=== PATIENT | female | born 1980 | race Two or more races ===

== ENCOUNTER 2016-12-27 16:28 | Outpatient (CLI) | payer MEDICAID | END 2016-12-27 16:29 | disposition home or self-care (01) | LOC: LAB.R 16:28 | PROVIDERS: ATTEND Obstetrics & Gynecology | DX: Z11.3 Encounter for screening for infections with a predominantly sexual mode of transmission (principal) | CPT/HCPCS: 87491; 87591 ==

== ENCOUNTER 2017-01-22 17:28 | Outpatient (CLI) | payer MEDICAID ==
[2017-01-22 17:47] LABS: BASOPHILS % (AUTO) 0.7 %; EOSINOPHILS # (AUTO) 0.1 10^3/uL (0.0-0.7); EOSINOPHILS % (AUTO) 0.9 %; HGB - HEMOGLOBIN 13.6 g/dL (12.0-16.0); LYMPHOCYTES # (AUTO) 2.9 10^3/uL (1.5-3.5); LYMPHOCYTES % (AUTO) 40.9 %; MEAN CORPUSCULAR HEMOGLOBIN 31.3 pg (27.0-31.0); MEAN CORPUSCULAR HGB CONC 34.1 g/dL (32.0-36.0); MEAN PLATELET VOLUME 7.8 fL (7.9-10.8); MONOCYTES # (AUTO) 0.4 10^3/uL (0.0-1.0); MONOCYTES % (AUTO) 5.3 %; NEUTROPHILS # (AUTO) 3.6 10^3/uL (1.5-6.6); NEUTROPHILS % (AUTO) 52.2 %; NUCLEATED RED BLOOD CELLS AUTO 0.1 /100WBC; RED BLOOD COUNT 4.35 10^6/uL (4.20-5.40)
[2017-01-22 17:54] LABS: BILIRUBIN,URINE NEGATIVE (NEGATIVE); PH,URINE 6.5 PH (5.0-7.5)
== END 2017-01-22 17:29 | disposition home or self-care (01) ==
LOC: LAB 17:28
PROVIDERS: ATTEND Obstetrics & Gynecology
DX: Z01.812 Encounter for preprocedural laboratory examination (principal); O02.1 Missed abortion
CPT/HCPCS: 81003; 85025; 86850; 86900; 86901

== ENCOUNTER 2017-01-23 09:56 | Day surgery (SDC) | payer MEDICAID ==
[2017-01-23] MEDS ORDERED: LACTATED RINGERS 1,000 ML IV ONE (10:27)
[2017-01-23] MEDS ORDERED: PROPOFOL 200 MG/20 ML VIAL IVP ONE (11:00)
[2017-01-23] MEDS ORDERED: MIDAZOLAM 2 MG/2 ML VIAL IVP ONE (11:00)
[2017-01-23] MEDS ORDERED: DEXAMETHASONE 4 MG/ML VIAL IVP ONE (11:00)
[2017-01-23] MEDS ORDERED: KETOROLAC 30 MG/ML VIAL IVP ONE (11:00)
[2017-01-23] MEDS ORDERED: fentaNYL 100 MCG/2 ML VIAL IVP ONE (11:00)
[2017-01-23] MEDS ORDERED: ONDANSETRON 4 MG/2 ML VIAL IVP ONE (11:00)
[2017-01-23] MEDS ORDERED: LIDOCAINE-MPF 2% 5 ML VIAL IM ONE (11:00)
--- NOTE | 2017-01-23 11:14 | PREOP HISTORY & PHYSICAL ---
DATE OF ADMISSION/SURGERY: 01/23/2017 IDENTIFICATION: Patient is a 36-year-old G4, P3 female whose last menstrual period was 26 October 2016 . This makes her 11 weeks 6 days. CHIEF COMPLAINT: Miscarriage. HISTORY OF PRESENT ILLNESS: Patient had an early ultrasound done at roughly 6 weeks, at which time li ve cardiac activity was noted. She presented yesterday on the , at which time a transvagina l ultrasound showed a crown-rump length which was compatible with about a 7-week gestation without an y cardiac activity. Care was taken to scan multiple times of the uterus and color flow Doppler was used. A confirmation with Dr. Tapia was also employed, and once again no cardiac activity w as seen. She presents today for a repeat ultrasound and, once again, no cardiac activity is see n. I have discussed with her the options at this time of observation versus Cytotec versus D and C. A t this particular time, she would like to pursue a D and C on the first part of next week. PAST MEDICAL HISTORY: Patient denies any hypertensive, diabetic, cardiac, or pulmonary disea se. SURGICAL HISTORY: She denies any C-sections, appendectomies, tonsillectomies. ALLERGIES: NONE KNOWN. CURRENT MEDICATIONS: vitamins. HABITS: Patient denies use of alcohol, tobacco, or street or addictive drugs. SOCIAL HISTORY: Patient lives with her spouse and children. 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 FAMILY HISTORY: Positive for diabetes, both in the mother as well as a paternal grandmother. PHYSICAL EXAMINATION GENERAL: Patient is a well-developed, well-nourished white female who is no acute distress at this t jyoti. She is somewhat distraught because of the loss of this fetus. HEENT: Pupils are equal, round. Extraocular muscles intact. Thyroid is not palpably enlarged. HEART: Regular rate and rhythm without murmurs. RESPIRATORY: Lung sauceda are clear without rales or wheezes. ABDOMEN: Soft, nontender. STUDIES: Transvaginal ultrasound today shows the evidence of a crown-rump length compatible with a 7 -week 6-day gestation. There is once again no cardiac activity seen at this time. IMPRESSION 1. A 36-year-old G4, P3 female, 11.6 weeks' gestation. 2. Spontaneous miscarriage without passage at this time. PLAN: We will proceed on with a sharp and suction D and C. Risks and benefits have been explained to the patient, including those but not limited to bleeding, infection, injury to pelvic organs which in clude the uterus, tubes, ovaries, bowel, bladder, and ureters. She is aware of potential for DVT, as well as postop adhesions which could cause pain, bowel obstruction, infertility. We will try and sche dule this for Sunday. JOB #: [id number] EXT JOB #:[id number]
[2017-01-23] MEDS ORDERED: LIDOCAINE 1% 50 ML MDV SUBQ ONE (11:55)
[2017-01-23] MEDS ORDERED: SILVER NITRATE APPLICATOR TOP ONE (11:55)
[2017-01-23] MEDS ORDERED: HYDROcod/ACETAM 5/325 MG TABLET ONE (13:52)
--- NOTE | 2017-01-23 16:31 | MRI Preliminary Report ---
Exam: MRI LUMBAR SPINE W/O IMPRESSION: 1. Mild lower lumbar degenerative disk and facet arthropathy without significant canal or foraminal s tenosis. Comment: The following findings are so common in adults without low back pain that while we report th eir presence, they must be interpreted with caution and in the context of the clinical situation. (Re remy Garcia et al, Spine 2001) Prevalence of findings in patients without low back pain: Disk degeneration (any evidence): 92% Disk desiccation/T2 signal loss: 83% Disk height loss: 56% Disk bulge: 64% Disk protrusion: 32% Annular tear/high intensity zone: 38% RADIA SITE ID: [id number]
--- NOTE | 2017-01-23 16:34 | MRI Report ---
EXAM: MRI LUMBAR SPINE WITHOUT CONTRAST EXAM DATE: 01/23/2017 04:05 PM. CLINICAL HISTORY: Loss of motor to legs bilaterally. COMPARISON: None. TECHNIQUE: Multiplanar, multisequence T1-weighted and fluid-sensitive sequences of the lumbar spine f rom T12 to S1 without contrast. Other: None. FINDINGS: Spinal Cord: The conus terminates at L1. The conus medullaris and cauda equina are unremarkable. Alignment: No scoliosis or spondylolisthesis. Bone Marrow: Five [id number]-vgx-[id number] lumbar vertebral bodies are assumed. No gross fractures or bone les ions. No bone marrow edema. Disk Levels/Facets: T12-L1: Unremarkable. L1-L2: Unremarkable. L2-L3: Unremarkable. L3-L4: Slight degree of disk dehydration and minimal disk bulge. No significant stenosis. L4-L5: Slight degree of disk dehydration. Mild bilateral degenerative facet arthropathy. Small broad- based central disk protrusion. Mild effacement of the thecal sac. No significant stenosis. L5-S1: Mild degenerative facet arthropathy. No stenosis. Musculature: Normal. No edema or fatty atrophy. Other: The endometrial cavity is distended with heterogenous signal intensity material partially visu alized. IMPRESSION: 1. Mild lower lumbar degenerative disk and facet arthropathy without significant canal or foraminal s tenosis. Comment: The following findings are so common in adults without low back pain that while we report th eir presence, they must be interpreted with caution and in the context of the clinical situation. (Re remy Garcia et al, Spine 2001) Prevalence of findings in patients without low back pain: Disk degeneration (any evidence): 92% Disk desiccation/T2 signal loss: 83% Disk height loss: 56% Disk bulge: 64% Disk protrusion: 32% Annular tear/high intensity zone: 38% RADIA Referring Provider Line: [phone] SITE ID: [id number]
[2017-01-23] MEDS ORDERED: ONDANSETRON 4 MG/2 ML VIAL IVP PRN (18:07)
[2017-01-23] MEDS ORDERED: HYDROcod/ACETAM 5/325 MG TABLET PO PRN (18:07)
[2017-01-23] MEDS ORDERED: KETOROLAC 15 MG/ML VIAL IVP PRN (18:08)
[2017-01-23 18:09] VITALS: BP 109/60
[2017-01-23] MEDS ORDERED: LACTATED RINGERS 1,000 ML IV SCH (19:00)
[2017-01-23] MEDS ORDERED: SODIUM CHLORIDE FLUSH 0.9% 10 ML SYRINGE IVP ONE (20:07)
--- NOTE | 2017-01-24 15:12 | OPERATIVE REPORT ---
DATE OF SURGERY: 01/23/2017 00:00:00 PREOPERATIVE DIAGNOSES 1. Inevitable at 11 weeks 6 days. 2. Absent heart tones confirmed on 2 separate ultrasounds. POSTOPERATIVE DIAGNOSES 1. Inevitable at 11 weeks 6 days. 2. Absent heart tones confirmed on 2 separate ultrasounds. 3. Conversion reaction after the procedure in recovery room PROCEDURE: Dilatation and curettage with suction. SURGEON: Elroy Mathis MD, FACOG ANESTHESIOLOGY PROVIDER: Mari Jain, Certified Nurse Stream Control Officer ANESTHESIA TYPE: MAC/sedation. BLOOD LOSS: 100. COMPLICATIONS: None. DRAINS: None. Patient straight-catheterized prior to procedure. FINDINGS: One day prior to the procedure, an office transvaginal ultrasound found the pole consistent with 7-1/2 weeks and absent heart tones observed by 2 people and over 4 minutes. Patient watched the Ultrasound video screen and acknowledged the absence of heart tones. There was no Subchorionic hematoma. There is no obvious ovarian pathology. Examination under anesthesia finds a 9-week uterus that is soft and boggy. The cervix is patulous. Right and left ovary are normal size and mobile. TECHNIQUE: Prior to the surgery, informed consent process was accomplished. She has had 3 such consent processes, the last of which in the office yesterday included information on spontaneous loss and D and C. All informed consent paperwork was signed. Patient was brought to the operating room and placed in the supine position on the OR table. She was uneventfully induced. She was prepped and draped in the customary sterile fashion. Time-out procedure was done per protocol. We ensured that the patient was appropriately sedated prior to beginning the procedure. Legs were moved to the high dorsal lithotomy position. Clamshell speculum was inserted and the cervix visualized. Bladder was straight cathed of a small amount of clear urine. Next 10 mL of lidocaine 1% was placed in the cervix in small aliquots to create a halo of anesthesia. We waited 5 minutes for the anesthetic effect to set up. The cervix was then uneventfully dilated to Hegar size 8. The # 9 suction curet was brought to the field and calibrated correct negative pressure. It was introduced into the uterine cavity and manipulated in a systematic manner to harvest the majority of the conceptual products. Sharp curet was introduced, and there were some residual products noted in the right upper cornual area, which were curetted and removed. One final suction curet pass was made. At this point, the procedure was terminated. All instruments were removed. There was continued oozing from the 2 single- toothed tenaculum sites. First we used silver nitrate that was not effective. Next the bleeding was stanched with 2 ojhjhe-ay-vizao stitches of 3-0 chromic. We observed the cervix for 4-5 minutes to ensure there was no bleeding. All instruments were removed. DISPOSITION: Patient was uneventfully aroused and taken to the recovery room in Stable condition. Intraoperative findings were reviewed with her and her . During my discussion with the patient she kept her eyes closed and refused to look at me. I offered comfort and acknowledged her grief. When nursing attempted to ambulate the patient to the commode she was unable to voluntarily move her legs. She reported conservation of normal sensation in the lower extremity but paralysis of the legs. Mari POWER performed an initial evaluation of the patient and obtained a MRI of the spine. The MRI was negative for infarct, Plaques (MS), disc disease or other pathology. I evaluated the patient in the recovery room and found her to be alert and communicative but complaining of profound lower extremity weakness. We discussed reactions to grief. The patient could ambulate to the restroom with assistance but was not stable yet. She was then moved to the [facility] floor for extended recovery. She had urinary retention initially but was periodically straight cathed. Urinary retention cleared and she began to resume normal activities and self-care. She then was discharged home. Patient recovered and was given complete discharge instructions and warning/callback instructions. DISCHARGE MEDICATIONS 1. Motrin 600 q.i.d. for pain. 2. Handley 5/325 q.4 hours p.r.n. breakthrough pain. FOLLOWUP: Patient will be seen in the clinic in 2-3 weeks. JOB #: [id number] EXT JOB #:[id number] MTDVíctor
== END 2017-01-23 20:45 | disposition home or self-care (01) ==
LOC: SDS 09:56 → OBS 13:00 → SDS 20:45
PROVIDERS: ATTEND Obstetrics & Gynecology
PROC: 10D17ZZ Extraction of Products of Conception, Retained, Via Natural or Artificial Opening (ICD-10-PCS; principal; 2017-01-23 11:00)
DX: O03.9 Complete or unspecified spontaneous abortion without complication (principal); R27.8 Other lack of coordination; M51.36 Other intervertebral disc degeneration, lumbar region
CPT/HCPCS: 59812; 72148; A9270; J7120

== ENCOUNTER 2017-11-16 12:46 | Outpatient (CLI) | payer MEDICAID ==
[2017-11-16 15:15] LABS: T4 (THYROXINE) 7.92 ug/dL (6.09-12.23)
[2017-11-16 15:19] LABS: THYROID STIMULATING HORMONE 0.78 uIU/mL (0.34-5.60)
[2017-11-16 15:21] LABS: FREE T4 (FREE THYROXINE) 0.69 ng/dL (0.58-1.64)
== END 2017-11-16 12:47 | disposition home or self-care (01) ==
LOC: LAB 12:46
PROVIDERS: ATTEND Obstetrics & Gynecology
DX: N91.4 Secondary oligomenorrhea (principal)
CPT/HCPCS: 36415; 84144; 84436; 84439; 84443

== ENCOUNTER 2017-12-07 21:31 | Outpatient (CLI) | payer MEDICAID ==
--- NOTE | 2017-12-07 22:29 | Ultrasound Report ---
Reason: FEMAL INFERTILITY ASSOC WITH ANOVULATION Procedure Date: 12/07/2017 Accession Number: [id number] / [id number] Procedure: US - Pelvic w/Transvaginal CPT Code: FULL RESULT: EXAM: PELVIC ULTRASOUND EXAM DATE: 12/07/2017 10:03 PM. CLINICAL HISTORY: FEMALE INFERTILITY ASSOC WITH ANOVULATION. COMPARISON: None available. TECHNIQUE: Realtime transabdominal pelvic scan performed to identify the uterus and adnexa and as an overview of other pelvic structures, followed by transvaginal scan to provide greater detail of the uterus and adnexa, with static image documentation. FINDINGS: Uterus: 10.1 x 8.0 x 5.1 cm, volume 214 cc. Anteverted position. Normal overall size and echotexture. Masses: None. Endometrium: 8 mm. Normal. Cervix: Unremarkable. Right Ovary: 3.2 x 1.8 x 1.5 cm, volume 4.5 cc. Normal echotexture and blood flow. Left Ovary: 3.0 x 1.8 x 1.6 cm, volume 4.5 cc. Normal echotexture and blood flow. Free Fluid: None. Other: None. IMPRESSION: Normal pelvic ultrasound. RADIA
[2017-12-08 00:04] LABS: FOLLICLE STIMULATING HORMONE 4.32 mIU/mL; LUTEINIZING HORMONE 7.64 mIU/mL
== END 2017-12-07 21:32 | disposition home or self-care (01) ==
LOC: DI 21:31
PROVIDERS: ATTEND Obstetrics & Gynecology
DX: N97.0 Female infertility associated with anovulation (principal)
CPT/HCPCS: 36415; 76830; 76856; 83001; 83002

== ENCOUNTER 2018-04-30 21:01 | Outpatient (CLI) | payer SELFPAY | END 2018-04-30 21:02 | disposition home or self-care (01) | LOC: LAB 21:01 | PROVIDERS: ATTEND Obstetrics & Gynecology | DX: N97.0 Female infertility associated with anovulation (principal) | CPT/HCPCS: 36415; 84702; 84703 ==

== ENCOUNTER 2018-05-02 19:00 | Outpatient (CLI) | payer SELFPAY | END 2018-05-02 19:01 | disposition home or self-care (01) | LOC: LAB 19:00 | PROVIDERS: ATTEND Obstetrics & Gynecology | DX: N97.0 Female infertility associated with anovulation (principal) | CPT/HCPCS: 36415; 84702 ==

== ENCOUNTER 2018-05-09 17:14 | Outpatient (CLI) | payer SELFPAY | END 2018-05-09 17:15 | disposition home or self-care (01) | LOC: LAB 17:14 | PROVIDERS: ATTEND Obstetrics & Gynecology | DX: N97.0 Female infertility associated with anovulation (principal) | CPT/HCPCS: 36415; 84702 ==

== ENCOUNTER 2018-05-26 11:51 | Emergency (ER) | payer MEDICAID ==
[2018-05-26] MEDS ORDERED: SODIUM CHLORIDE 0.9% 1,000 ML IV ONE (12:17)
--- NOTE | 2018-05-26 12:27 | ED Physician Documentation ---
History of Present Illness - Stated complaint Stated Complaint: 7WKS FEMALE - Chief complaint Chief Complaint: Abd Pain - History obtained from History obtained from: Patient - History of Present Illness Timing: Today - Additonal information Additional information: Patient is a [id number] female who is approximately 7 weeks presenting with abdominal cramping and vaginal bleeding that started earlier today. Patient last saw her CAN BANDER OPERATOR 2 days ago. At that time an ultrasound was performed and there was a question as to whether a heartbeat could be detected and exactly how many weeks along the patient currently is. Patient otherwise denies any complications with this . Patient denies fever, nausea, vomiting, urinary changes, stool changes, or edema. Patient is currently taking all vitamins. Patient denies any particular improving or worsening factors to her symptoms.Per chart review, patient is Rh+ and will not require RhoGam. Review of Systems Constitutional: denies: Fever GI: reports: Abdominal Pain : reports: Vaginal bleeding PD PAST MEDICAL HISTORY - Past Medical History Past Medical History: No - Past Surgical History Past Surgical History: No - Present Medications Home Medications: Ambulatory Orders Medication Instructions Recorded Confirmed No Known Home Medications 07/25/15 07/25/15 - Allergies Allergies/Adverse Reactions: Allergies Allergy/AdvReac Type Severity Reaction Status Date / Time No Known Drug Allergies Allergy Verified 05/26/18 12:04 - Social History Does the pt smoke?: No Smoking Status: Never smoker Does the pt drink ETOH?: No Does the pt have substance abuse?: No - Immunizations Immunizations are current?: Yes PD ED PE NORMAL - General General: Alert and oriented X 3, No acute distress, Well developed/nourished - HEENT HEENT: Atraumatic, Moist mucous membranes, Pharynx benign, Dentition benign - Cardiac Cardiac: RRR, No murmur - Respiratory Respiratory: No respiratory distress, Clear bilaterally - Abdomen Abdomen: Normal bowel sounds, Soft, Non tender, Non distended - Derm Derm: Normal color, Warm and dry, No rash - Extremities Extremities: No edema - Neuro Neuro: Alert and oriented X 3, No motor deficit, No sensory deficit - Psych Psych: Normal mood, Normal affect Results - Vitals Vitals: Vital Signs - 24 hr 05/26/18 12:03 Temperature 36.6 C Heart Rate 70 Respiratory 20 Rate Blood Pressure 115/70 O2 Saturation 99 Oxygen O2 Source Room air - Labs Labs: Laboratory Tests 05/26/18 05/26/18 05/26/18 12:45 12:45 12:50 WBC 5.3 RBC 4.16 L Hgb 13.2 Hct 37.6 MCV 90.5 MCH 31.9 H MCHC 35.2 RDW 12.8 Plt Count 229 MPV 8.1 Neut # (Auto) 2.6 Lymph # (Auto) 2.3 [place] # (Auto) 0.3 Eos # (Auto) 0.1 Baso # (Auto) 0.0 Absolute Nucleated RBC 0.00 Nucleated RBC % 0.0 Sodium 137 Potassium 3.5 Chloride 103 Carbon Dioxide 25 Anion Gap 9.0 BUN 16 Creatinine 0.6 Estimated GFR (MDRD) 113 Glucose 112 H Calcium 9.1 Total Bilirubin 0.7 AST 18 ALT 19 Alkaline Phosphatase 45 Total Protein 7.5 Albumin 4.2 Globulin 3.3 Albumin/Globulin Ratio 1.3 Lipase 42 Urine Color YELLOW Urine Clarity CLEAR Urine pH 7.0 Ur Specific [place] 1.010 Urine Protein NEGATIVE Urine Glucose (UA) NEGATIVE Urine Ketones NEGATIVE Urine Occult Blood TRACE-INTA Urine Nitrite NEGATIVE Urine Bilirubin NEGATIVE Urine Urobilinogen 0.2 (NORMAL) Ur Leukocyte Esterase NEGATIVE Ur Microscopic Review NOT INDICATED Urine Culture Comments NOT INDICATED PD MEDICAL DECISION MAKING - ED course Complexity details: reviewed old records, reviewed results, re-evaluated patient, considered differential, d/w patient, d/w family ED course: Most concerning for threatened , missed , and other complications related to including placenta previa or placental abruption. I have lower suspicion for other complications such as HELLP syndrome, gestational diabetes, or other systemic or acute processes, particularly given patient's benign exam and minimal complaints.Per chart review, patient is Rh+ and therefore will not require RhoGam. Patient declined IV placement and fluid. Blood work, as well as urine obtained. Ultrasound also ordered. She remains comfortable during ED stay.Blood work returned relatively unremarkable, as do any urinalysis. No evidence of UTI. Ultrasound returned equivocal and similar to what patient reported was found several days ago. No obvious signs of true intrauterine , but equivocal changes. At this time, I have lower suspicion for ectopic otherwise, given previous CAN BANDER OPERATOR workup, but discussed the need for repeat ultrasound and hCG testing in the next 48 hours. Patient does report that she has follow-up with CAN BANDER OPERATOR scheduled already for this week. Advised her to contact CAN BANDER OPERATOR tomorrow to tell them that she has not experience and cramping and bleeding and was seen in the ED. Patient voiced understanding and is comfortable with this plan, as well as strict return precautions. Departure - Departure Disposition: 01 Home, Self Care Clinical Impression: First trimester bleeding Condition: Good Instructions: Bleeding Early Preg Follow-Up: your,CAN BANDER OPERATOR [Other] - Tomorrow Comments: Please continue vitamins. Please contact CAN BANDER OPERATOR tomorrow and notify the office of your new cramping and vaginal bleeding, as well as your ER visit. Recommend follow-up with CAN BANDER OPERATOR in next 48 hours for repeat blood work and ul trasound. May also return to the ED for this repeat blood work and ultrasound. Return to the ED sooner if experience worsening symptoms or other concerns.
[2018-05-26 12:56] LABS: BASOPHILS % (AUTO) 0.6 %; EOSINOPHILS # (AUTO) 0.1 10^3/uL (0.0-0.7); HGB - HEMOGLOBIN 13.2 g/dL (12.0-16.0); LYMPHOCYTES # (AUTO) 2.3 10^3/uL (1.5-3.5); LYMPHOCYTES % (AUTO) 43.5 %; MEAN CORPUSCULAR HEMOGLOBIN 31.9 pg (27.0-31.0); MEAN CORPUSCULAR HGB CONC 35.2 g/dL (32.0-36.0); MEAN CORPUSCULAR VOLUME 90.5 fL (81.0-99.0); MEAN PLATELET VOLUME 8.1 fL (7.9-10.8); MONOCYTES # (AUTO) 0.3 10^3/uL (0.0-1.0); NEUTROPHILS # (AUTO) 2.6 10^3/uL (1.5-6.6); NEUTROPHILS % (AUTO) 48.9 %; PLT - PLATELET COUNT 229 10^3/uL (130-450); RED BLOOD COUNT 4.16 10^6/uL (4.20-5.40); RED CELL DISTRIBUTION WIDTH 12.8 % (12.0-15.0); WHITE BLOOD COUNT 5.3 x10^3/uL (4.8-10.8)
[2018-05-26 13:08] LABS: BILIRUBIN,URINE NEGATIVE (NEGATIVE); GLUCOSE, URINE (UA) NEGATIVE (NEGATIVE); KETONES,URINE (UA) NEGATIVE (NEGATIVE); LEUKOCYTE ESTERASE, URINE NEGATIVE (NEGATIVE); NITRITE,URINE NEGATIVE (NEGATIVE); OCCULT BLOOD,URINE TRACE-INTA (NEGATIVE); PROTEIN,URINE NEGATIVE (NEGATIVE); UROBILINOGEN,URINE 0.2 (NORMAL) E.U./dL (NORMAL)
[2018-05-26 13:09] LABS: ALBUMIN 4.2 g/dL (3.2-5.5); ALBUMIN/GLOBULIN RATIO 1.3 (1.0-2.2); BILIRUBIN,TOTAL 0.7 mg/dL (0.2-1.0); CALCIUM 9.1 mg/dL (8.5-10.3); CREATININE 0.6 mg/dL (0.4-1.0); TOTAL PROTEIN 7.5 g/dL (6.7-8.2)
[2018-05-26 13:13] LABS: CLARITY,URINE CLEAR (CLEAR)
--- NOTE | 2018-05-26 14:22 | Ultrasound Report ---
Reason: bleeding at 7 weeks preg Procedure Date: 05/26/2018 Accession Number: [id number] / [id number] Procedure: US - OB Transvaginal CPT Code: FULL RESULT: EXAM: FIRST TRIMESTER OBSTETRIC ULTRASOUND (Less than 11 weeks) EXAM DATE: 05/26/2018 01:59 PM. CLINICAL HISTORY: Bleeding at 7 weeks . LMP: 03/30/2018. COMPARISONS: None for this gestation. TECHNIQUE: Transvaginal ultrasound examination with static image documentation. CLINICAL DATES: EGA 8 weeks 1 day with ARELY 01/04/2019 based on LMP. ASSESSMENT: Gestational Sac: Single intrauterine. Mean gestational sac diameter: 10.7 mm = 5 weeks 0 days. Embryo: No embryonic pole visualized. Yolk sac: Not visualized. Amniotic fluid: Not accurately assessed at this gestational age. Early placenta: Not visible at this gestational age. Other: No perigestational fluid collection demonstrated. MATERNAL STRUCTURES: Uterus: Anteverted. Unremarkable. Cervix: Closed. Right Ovary/Adnexa: The ovary measures 2.5 x 1.6 x 1.8 cm, volume 3.7 cc. Unremarkable. Left Ovary/Adnexa: The ovary measures 2.4 x 1.7 x 2.6 cm, volume 5.5 cc. Unremarkable. Free Fluid: None. Other: None. IMPRESSION: Single intrauterine fluid collection, which may represent an early gestational sac. No embryonic pole or yolk sac visualized. Given that ectopic is not entirely excluded, recommend surveillance of serial quantitative beta hCG with short-term follow-up imaging. RADIA
[2018-05-26 15:03] VITALS: BP 95/65
== END 2018-05-26 15:04 | disposition home or self-care (01) ==
LOC: ED 11:51
DX: O20.9 Hemorrhage in early pregnancy, unspecified (principal); O09.521 Supervision of elderly multigravida, first trimester; Z3A.01 Less than 8 weeks gestation of pregnancy
CPT/HCPCS: 36415; 76817; 80053; 81001; 81003; 83690; 85025; 86850; 86900; 86901; 87086; 99283

== ENCOUNTER 2018-05-27 12:23 | Outpatient (CLI) | payer MEDICAID | END 2018-05-27 12:24 | disposition home or self-care (01) | LOC: LAB 12:23 | PROVIDERS: ATTEND Obstetrics & Gynecology | DX: Z33.1 Pregnant state, incidental (principal) | CPT/HCPCS: 36415; 84702; 84703 ==

== ENCOUNTER 2019-05-21 15:12 | Outpatient (CLI) | payer MEDICAID ==
[2019-05-21 16:26] LABS: HGB - HEMOGLOBIN 11.3 g/dL (12.0-16.0); MEAN CORPUSCULAR HGB CONC 33.7 g/dL (32.0-36.0); MEAN CORPUSCULAR VOLUME 91.8 fL (81.0-99.0); RED BLOOD COUNT 3.65 10^6/uL (4.20-5.40); RED CELL DISTRIBUTION WIDTH 12.9 % (12.0-15.0)
== END 2019-05-21 15:13 | disposition home or self-care (01) ==
LOC: LAB 15:12
PROVIDERS: ATTEND Nurse Practitioner Obstetrics & Gynecology
DX: Z36.89 Encounter for other specified antenatal screening (principal)
CPT/HCPCS: 36415; 82950; 85027; 86850

== ENCOUNTER 2019-06-18 08:29 | Outpatient (CLI) | payer MEDICAID ==
[2019-06-18 09:21] LABS: HB2 TOTAL 11.2 g/dL; HEMOGLOBIN A1C 0.57 g/dL; HEMOGLOBIN A1C % 6.8 % (4.6-6.2)
== END 2019-06-18 08:30 | disposition home or self-care (01) ==
LOC: LAB 08:29
PROVIDERS: ATTEND Nurse Practitioner Obstetrics & Gynecology
DX: O99.810 Abnormal glucose complicating pregnancy (principal); Z3A.00 Weeks of gestation of pregnancy not specified
CPT/HCPCS: 36415; 82951; 82952; 83036

== ENCOUNTER 2019-06-21 11:15 | Outpatient (CLI) | payer MEDICAID ==
--- NOTE | 2019-06-21 12:42 | Ultrasound Report ---
Reason: IMPAIRED GTT IN Procedure Date: 06/21/2019 Accession Number: [id number] / [id number] Procedure: US - OB F/U or Repeat CPT Code: Final Report FULL RESULT: EXAM: FOLLOW-UP OBSTETRICAL ULTRASOUND EXAM DATE: 06/21/2019 12:29 PM. CLINICAL HISTORY: IMPAIRED GTT IN . COMPARISON: OB F/U OR REPEAT 01/10/2016 1:39 PM. TECHNIQUE: Real-time sonographic evaluation of the fetus performed by the scudding inspector. Multiple territory sales representative static images were saved for review. DATING: Established EGA 34 weeks 4 days with ARELY 07/29/2019 based on established date of conception. EGA 36 weeks 6 days with ARELY 07/13/2019 based on the current ultrasound. GENERAL EVALUATION Admon . Cardiac activity: 145 bpm. movement: Visualized. Presentation: Cephalic. Placenta: Anterior position. Amniotic fluid: Normal. JULISSA 17.4 cm. MVP 8.2 cm. BIOMETRY Bi-Parietal Diameter (BPD): 9.1 cm, 36 weeks 6 days Head Circumference (HC): 32.5 cm, 36 weeks 6 days Abdominal Circumference (AC): 35.4 cm, 39 weeks 2 days Femur Length (FL): 6.7 cm, 34 weeks 4 days Estimated Weight: 3274 g, 99.3 percentile for 34 weeks 4 days. IMPRESSION: 1. Damon live intrauterine with gestational age 34 weeks 4 days based on established date of conception. 2. Estimated weight 3274 g in the 99th percentile. QUINTON
== END 2019-06-21 11:16 | disposition home or self-care (01) ==
LOC: DI 11:15
PROVIDERS: ATTEND Obstetrics & Gynecology
DX: O99.810 Abnormal glucose complicating pregnancy (principal); Z3A.34 34 weeks gestation of pregnancy
CPT/HCPCS: 76816

== ENCOUNTER 2019-07-03 06:47 | Outpatient (CLI) | payer MEDICAID ==
[2019-07-03 06:59] VITALS: BP 116/74
--- NOTE | 2019-07-03 10:43 | PROVIDER PROGRESS NOTE ---
- HPI Chief Complaint: Labor (36.2 weels C/O contractions. strong . smiling moving easly.) Current : Current EDU 07/29/19 Gestation 36 Weeks and 2 Days 7 Para 3 Vital Signs Temperature 36.8 C 07/03/19 06:54 Heart Rate 78 07/03/19 06:54 Respiratory Rate 20 07/03/19 06:54 Blood Pressure 116/74 07/03/19 06:54 O2 Saturation 100 07/03/19 06:54 Temperature 36.8 C 07/03/19 07:02 Heart Rate 78 07/03/19 07:02 Respiratory Rate 07/03/19 07:02 Blood Pressure 116/74 07/03/19 07:02 O2 Saturation 100 07/03/19 07:02 - Exam cx check head very high. NST reactive but noted to have 2 spontainous early decelerations. BPP 10/03 reviewed blood sugars. pt reports fasting 90 and 1 hour 110s. - Procedures NST Procedure: reasctive with two early decelerations 10/03 BPP. - Plan Plan: twice weekly NST. Keep clinic Appts
--- NOTE | 2019-07-03 10:50 | Labor Flowsheet ---
Labor Flowsheet Datetime Report Generated by CPN: 07/03/2019 10:49 Datetime: 07/03/2019 09:57 Patient Care Comments: US here for BPP Datetime: 07/03/2019 09:56 UTERINE ACTIVITY Monitor Mode: External Frequency (min): 4-8 Quality: Moderate Duration (sec): 50-90 Pattern: Normal: <= 5 Contractions in 10 Minutes Resting Tone (Palpate): Relaxed ASSESSMENT A Monitor Mode: External US FHR Baseline Rate : 135 Variability: Moderate 6-25 bpm Accelerations: 15X15 Decelerations: None Category: Category I PATIENT CARE Oxygen Method: Room Air Datetime: 07/03/2019 09:51 COMMUNICATION Communication: Provider at Bedside Communication Comments: MD reviewed strip Datetime: 07/03/2019 09:20 I/O Interventions: Up to BR Datetime: 07/03/2019 07:22 PAIN Pain Scale: 8 Pain Presence: Intermittent Pain Type: Cramping Pain Location: Abdomen Pain Assessment Comments: pt. would like to wait and see about pain medications, did not have an ep idural with last child. will cont. to monitor. LaborFlag: Labor Datetime: 07/03/2019 06:59 VITAL SIGNS NBP Sys/Briseyda/Mean (mmHg): 116 : 74 : 85 Pulse: 73 SpO2 (%): 100 Datetime: 07/03/2019 06:56 Stage of : Labor
--- NOTE | 2019-07-03 12:29 | Ultrasound Report ---
Reason: initial non reactive MD tyson order. Procedure Date: 07/03/2019 Accession Number: [id number] / [id number] Procedure: US - OB Biophysical Profile CPT Code: Final Report FULL RESULT: EXAM: BIOPHYSICAL PROFILE EXAM DATE: 07/03/2019 10:23 AM. CLINICAL HISTORY: Nonreactive tocometry strip. LMP unknown. EDC 07/29/2019. COMPARISON: 06/21/2019. TECHNIQUE: Real-time sonographic evaluation of the fetus performed by the menhaden vessel pilot. Multiple medical center representative static images were saved for review. DATING: Established EGA 36 weeks 2 days with ARELY 07/29/2019. GENERAL EVALUATION Damon . Cardiac activity: 140 bpm. movement: Visualized. Presentation: Cephalic. Placenta: Cephalic position. No evidence for previa or abruption. Amniotic fluid: JULISSA 14.9 cm. MVP 7.56 cm. BIOPHYSICAL PROFILE Breathing = 2 Movement = 2 Tone = 2 Amniotic Fluid = 2 Total 10/03 IMPRESSION: 1. Damon live intrauterine with gestational age 36 weeks 2 days based on established ARELY. 2. Biophysical profile score 8 of 8. QUINTON
== END 2019-07-03 10:45 | disposition home or self-care (01) ==
LOC: WFO 06:47 → FBP 06:52 → WFO 10:45
PROVIDERS: ATTEND Obstetrics & Gynecology
DX: O36.8330 Maternal care for abnormalities of the fetal heart rate or rhythm, third trimester, not applicable or unspecified (principal); Z3A.36 36 weeks gestation of pregnancy
CPT/HCPCS: 76819; 87797; 99214

== ENCOUNTER 2022-08-04 09:15 | Outpatient (CLI) | payer SELFPAY ==
--- NOTE | 2022-08-04 11:14 | XRAY Report ---
PROCEDURE: Chest 2 View X-Ray INDICATIONS: COUGH TECHNIQUE: 2 views of the chest were acquired. COMPARISON: None. FINDINGS: Surgical changes and devices: None. Lungs and pleura: No pleural effusions or pneumothorax. Lungs are clear. Mediastinum: Mediastinal contours appear normal. Heart size is normal. Bones and chest wall: No suspicious bony lesions. Overlying soft tissues appear unremarkable. IMPRESSION: No acute cardiopulmonary process. Reviewed by: Tom Maddox on 08/04/2022 11:12 AM PDT Approved by: Tom Maddox on 08/04/2022 11:12 AM PDT Station ID: [id number]
== END 2022-08-04 09:30 | disposition home or self-care (01) ==
LOC: DI.N 09:15
PROVIDERS: ATTEND Family Medicine
DX: R05.9 Cough, unspecified (principal)

== ENCOUNTER 2022-10-17 14:24 | Outpatient (CLI) | payer MEDICAID ==
[2022-10-17 14:41] LABS: BASOPHILS % (AUTO) 0.7 %; EOSINOPHILS # (AUTO) 0.1 10^3/uL (0.0-0.7); HCT - HEMATOCRIT 41.1 % (37.0-47.0); LYMPHOCYTES # (AUTO) 2.8 10^3/uL (1.5-3.5); LYMPHOCYTES % (AUTO) 47.2 %; MEAN CORPUSCULAR HEMOGLOBIN 31.3 pg (27.0-31.0); MEAN CORPUSCULAR HGB CONC 34.1 g/dL (32.0-36.0); MEAN CORPUSCULAR VOLUME 91.7 fL (81.0-99.0); MEAN PLATELET VOLUME 9.9 fL (7.9-10.8); MONOCYTES # (AUTO) 0.4 10^3/uL (0.0-1.0); MONOCYTES % (AUTO) 6.1 %; NEUTROPHILS # (AUTO) 2.6 10^3/uL (1.5-6.6); NEUTROPHILS % (AUTO) 43.3 %; PLT - PLATELET COUNT 273 10^3/uL (130-450); RED BLOOD COUNT 4.48 10^6/uL (4.20-5.40)
[2022-10-17 14:59] LABS: ALBUMIN 4.5 g/dL (3.2-5.5); ALBUMIN/GLOBULIN RATIO 1.5 (1.0-2.2); ALKALINE PHOSPHATASE 45 IU/L (42-121); ALT ALANINE AMINOTRANSFERASE 37 IU/L (10-60); AST ASPARTATE AMINOTRANSFERASE 24 IU/L (10-42); BILIRUBIN,TOTAL 0.8 mg/dL (0.2-1.0); BUN - BLOOD UREA NITROGEN 10 mg/dL (6-20); CALCIUM 9.7 mg/dL (8.5-10.3); CARBON DIOXIDE - CO2 30 mmol/L (21-32); CHLORIDE 102 mmol/L (101-111); CHOL/HDL RATIO 6.4 (<4.4); CHOLESTEROL 237 mg/dL; CREATININE 0.6 mg/dL (0.6-1.3); GFR - MDRD 111 (>89); GLUCOSE 105 mg/dL (74-104); HDL CHOLESTEROL 37 mg/dL; POTASSIUM 3.7 mmol/L (3.5-4.5); SODIUM 136 mmol/L (135-145); TOTAL PROTEIN 7.6 g/dL (6.4-8.9); TRIGLYCERIDES 562 mg/dL (48-352)
[2022-10-17 15:10] LABS: THYROID STIMULATING HORMONE 0.94 uIU/mL (0.34-5.60)
[2022-10-17 16:35] LABS: LDL CHOLESTEROL,DIRECT 132 mg/dL (75-193); LDLD/HDL RATIO 3.6 (<4.4)
[2022-10-17 20:59] LABS: ESTIMATED AVERAGE GLUCOSE 126 mg/dL (70-100)
== END 2022-10-17 14:25 | disposition home or self-care (01) ==
LOC: LAB 14:24
PROVIDERS: ATTEND Physician Assistant
DX: R73.01 Impaired fasting glucose (principal); Z22.7 Latent tuberculosis; Z13.9 Encounter for screening, unspecified
CPT/HCPCS: 36415; 80053; 80061; 81599; 83036; 83721; 84443; 85025; 86480